=== PATIENT | male | born 1955 | race Caucasian/White ===

== ENCOUNTER 2018-10-05 09:38 | Outpatient (REF) | payer OTHER, SELFPAY ==
[2018-10-05 22:27] LABS: Cholesterol 216 mg/dL (50-200); HDL Cholesterol 44 mg/dL (40-60); LDL CHOLESTEROL 154 mg/dL (<100); Triglyceride 89 mg/dL (30-150)
== END 2018-10-05 09:58 ==
LOC: NCHCN 09:38
PROVIDERS: PCP Internal Medicine; Visit Provider Internal Medicine
DX: I10 Essential (primary) hypertension (principal); Z00.00 Encounter for general adult medical examination without abnormal findings; Z13.220 Encounter for screening for lipoid disorders
CPT/HCPCS: 80061; 83721

== ENCOUNTER 2019-05-03 10:07 | Outpatient (REF) | payer OTHER, SELFPAY ==
[2019-05-03 21:06] LABS: Anion Gap 10.9 mmol/L (3-11); BUN 28 mg/dL (7-18); CO2 28.1 mmol/L (21.0-32.0); CREATININE 1.03 mg/dL (0.70-1.30); Calcium 8.7 mg/dL (8.5-10.1); Calculated LDL 151 mg/dL; Chloride 103 mmol/L (98-107); Cholesterol 201 mg/dL (50-200); Glucose 85 mg/dL (70-100); HDL Cholesterol 36 mg/dL (40-60); Potassium 3.6 mmol/L (3.5-5.1); Sodium 142 mmol/L (136-145); Triglyceride 72 mg/dL (30-150)
== END 2019-05-03 10:27 ==
LOC: NCHCN 10:07
PROVIDERS: PCP Internal Medicine; Visit Provider Internal Medicine
DX: E78.5 Hyperlipidemia, unspecified (principal); I10 Essential (primary) hypertension
CPT/HCPCS: 80048; 80061; 83721

== ENCOUNTER 2019-12-15 12:46 | Outpatient (REF) | payer OTHER, SELFPAY | END 2019-12-15 13:06 | LOC: NCHCN 12:46 | PROVIDERS: PCP Internal Medicine; Visit Provider Internal Medicine | DX: R69 Illness, unspecified (principal) | CPT/HCPCS: 87449 ==

== ENCOUNTER 2020-07-07 15:00 | Outpatient (REF) | payer OTHER, SELFPAY ==
[2020-07-07 21:31] LABS: Anion Gap 7.3 mmol/L (3-11); BUN 26 mg/dL (7-18); CO2 29.7 mmol/L (21.0-32.0); CREATININE 0.94 mg/dL (0.70-1.30); Calcium 8.9 mg/dL (8.5-10.1); Calculated LDL 83 mg/dL (<100); Chloride 103 mmol/L (98-107); Cholesterol 134 mg/dL (<200); Glucose 80 mg/dL (74-106); HDL Cholesterol 37 mg/dL (40-60); Potassium 3.4 mmol/L (3.5-5.1); Sodium 140 mmol/L (136-145); Triglyceride 74 mg/dL (<150)
== END 2020-07-07 15:20 ==
LOC: NCHCN 15:00
PROVIDERS: PCP Internal Medicine; Visit Provider Internal Medicine
DX: E78.5 Hyperlipidemia, unspecified (principal); I10 Essential (primary) hypertension
CPT/HCPCS: 80048; 80061

== ENCOUNTER 2021-07-05 12:12 | Outpatient (REF) | payer MEDICARE, SELFPAY ==
[2021-07-05 14:42] LABS: Anion Gap 8.2 mmol/L (3-11); BUN 32 mg/dL (7-18); CO2 30.8 mmol/L (21.0-32.0); CREATININE 1.2 mg/dL (0.70-1.30); Calcium 8.7 mg/dL (8.5-10.1); Calculated LDL 86 mg/dL (<100); Chloride 104 mmol/L (98-107); Cholesterol 139 mg/dL (<200); Glucose 98 mg/dL (74-106); HDL Cholesterol 38 mg/dL (40-60); Potassium 3.5 mmol/L (3.5-5.1); Sodium 143 mmol/L (136-145); Triglyceride 76 mg/dL (<150)
[2021-07-05 22:38] LABS: PSA, Screening 1.3 ng/mL (0.0-4.5)
== END 2021-07-05 12:13 | disposition home or self-care (01) ==
LOC: NCHCN 12:12
PROVIDERS: PCP Internal Medicine; Visit Provider Internal Medicine
DX: I10 Essential (primary) hypertension (principal); E78.5 Hyperlipidemia, unspecified; Z12.5 Encounter for screening for malignant neoplasm of prostate
CPT/HCPCS: 80048; 80061; 84153

== ENCOUNTER 2021-09-03 16:35 | Outpatient (REF) | payer MEDICARE, OTHER, SELFPAY ==
[2021-09-05 12:52] LABS: COVID-19 RT-PCR UVMMC Result Negative (Negative)
== END 2021-09-03 16:36 | disposition home or self-care (01) ==
LOC: NCHCN 16:35
PROVIDERS: PCP Internal Medicine; Visit Provider Nurse Practitioner Family
DX: Z20.822 Contact with and (suspected) exposure to COVID-19 (principal); J06.9 Acute upper respiratory infection, unspecified
CPT/HCPCS: U0003

== ENCOUNTER 2022-07-05 08:48 | Outpatient (REF) | payer MEDICARE, SELFPAY ==
[2022-07-05 16:19] LABS: ALT 45 U/L (16-63); AST 38 U/L (15-37); Albumin 3.7 g/dL (3.4-5.0); Alkaline Phosphatase 81 U/L (46-116); Anion Gap 6.3 mmol/L (3-11); BUN 22 mg/dL (7-18); Bilirubin, Total 0.6 mg/dL (0.2-1.0); CO2 32.7 mmol/L (21.0-32.0); CREATININE 1.1 mg/dL (0.70-1.30); Calcium 8.9 mg/dL (8.5-10.1); Calculated LDL 77 mg/dL (<100); Chloride 102 mmol/L (98-107); Cholesterol 132 mg/dL (<200); Estimated GFR 74.04 (mL/min/1.73m2); Glucose 94 mg/dL (74-106); HDL Cholesterol 42 mg/dL (40-60); Potassium 3.3 mmol/L (3.5-5.1); Sodium 141 mmol/L (136-145); Total Protein 7.6 g/dL (6.4-8.2); Triglyceride 67 mg/dL (<150)
== END 2022-07-05 08:49 | disposition home or self-care (01) ==
LOC: NCHCN 08:48
PROVIDERS: PCP Internal Medicine; Visit Provider Internal Medicine
DX: I10 Essential (primary) hypertension (principal)
CPT/HCPCS: 80053; 80061

== ENCOUNTER 2022-08-12 10:23 | Outpatient (REF) | payer MEDICARE, SELFPAY ==
[2022-08-12 14:18] LABS: HCT 46.7 % (40.0-50.0); HGB 15.5 g/dL (13.5-17.5); MCH 29.1 pg (27.0-33.0); MCHC 33.2 % (32.0-36.0); MCV 88 fL (80-95); MPV 11.1 fL (8.0-11.0); Platelet Count 241 10^3/uL (130-400); RBC 5.32 10^6/uL (4.36-5.78); RDW 12.9 % (11.8-14.1); RDW-SD 41.1 fL; WBC 8.14 10^3/uL (4.4-10.8)
[2022-08-12 14:52] LABS: ALT 50 U/L (16-63); AST 36 U/L (15-37); Albumin 3.7 g/dL (3.4-5.0); Alkaline Phosphatase 85 U/L (46-116); Anion Gap 6.8 mmol/L (3-11); BUN 29 mg/dL (7-18); Bilirubin, Total 0.9 mg/dL (0.2-1.0); CO2 29.2 mmol/L (21.0-32.0); CREATININE 1.1 mg/dL (0.70-1.30); Calcium 8.9 mg/dL (8.5-10.1); Calculated LDL 70 mg/dL (<100); Chloride 104 mmol/L (98-107); Cholesterol 125 mg/dL (<200); Estimated GFR 74.04 (mL/min/1.73m2); Glucose 102 mg/dL (74-106); HDL Cholesterol 41 mg/dL (40-60); Potassium 3.7 mmol/L (3.5-5.1); Sodium 140 mmol/L (136-145); Total Protein 7.6 g/dL (6.4-8.2); Triglyceride 71 mg/dL (<150)
[2022-08-14 10:39] LABS: Hepatitis C Ab w Rflx HCV PCR Negative (Negative)
== END 2022-08-12 10:24 | disposition home or self-care (01) ==
LOC: NCHCN 10:23
PROVIDERS: PCP Internal Medicine; Visit Provider Internal Medicine
DX: I10 Essential (primary) hypertension (principal); E78.5 Hyperlipidemia, unspecified; R79.89 Other specified abnormal findings of blood chemistry; E87.6 Hypokalemia; Z11.59 Encounter for screening for other viral diseases
CPT/HCPCS: 80053; 80061; 85027; 86803

== ENCOUNTER 2023-07-11 15:46 | Outpatient (REF) | payer MEDICARE, SELFPAY ==
--- OUTSIDE RECORDS SUMMARY | 2023-07-11 15:48 | XMS_ITS | CCD ---
Author Name Unknown Address [address] [place] [id number] Organization Unknown Address [address] [place] [id number] Care Team Providers Care Fiscal Manager Name Role Phone [email or web address] GALLO Attending Physician [phone] Vital Signs Unknown or Not Available. Allergies Allergy Code Allergy Type Reaction Status No Known Drug Allergies 0 No known drug allergies Active Procedures Unknown or Not Available. History of Immunizations Unknown or Not Available. Problems Unknown or Not Available. Results Unknown or Not Available. Active Medications Unknown or Not Available. Medications Administered During Visit Unknown or Not Available. Encounters Unknown or Not Available. Social History Smoking Status Code Start Date End Date Never smoker [id number] Patient Decision Aids Unknown or Not Available. Discharge Instructions You were admitted to [facility] on 07/03/2023 15:38 You were discharged from [facility] on 07/03/2023 15:38 Should you have any questions prior to discharge, please contact a member of your healthcare team. If you have left the hospital and have any questions, please contact your primary care physician. Chief Complaint and Reason For Visit Unknown or Not Available. Function Status Unknown or Not Available. Plan of Care Unknown or Not Available. Referral/Transition of Care Unknown or Not Available.
[2023-07-11 18:04] LABS: ALT 35 U/L (16-63); AST 22 U/L (15-37); Albumin 3.6 g/dL (3.4-5.0); Alkaline Phosphatase 86 U/L (46-116); Anion Gap 6.5 mmol/L (3-11); BUN 25 mg/dL (7-18); Bilirubin, Total 0.7 mg/dL (0.2-1.0); CO2 30.5 mmol/L (21.0-32.0); CREATININE 1.2 mg/dL (0.70-1.30); Calcium 9.7 mg/dL (8.5-10.1); Chloride 101 mmol/L (98-107); Estimated GFR 66.28 (mL/min/1.73m2); Glucose 106 mg/dL (74-106); Potassium 3.9 mmol/L (3.5-5.1); Sodium 138 mmol/L (136-145); Total Protein 7.8 g/dL (6.4-8.2)
[2023-07-11 18:23] LABS: Calculated LDL 71 mg/dL (<100); Cholesterol 123 mg/dL (<200); HDL Cholesterol 39 mg/dL (40-60); Triglyceride 68 mg/dL (<150)
== END 2023-07-11 15:47 | disposition home or self-care (01) ==
LOC: NCHCN 15:46
PROVIDERS: PCP Internal Medicine; Visit Provider Internal Medicine
DX: E78.5 Hyperlipidemia, unspecified (principal); I10 Essential (primary) hypertension
CPT/HCPCS: 80053; 80061

== ENCOUNTER 2024-07-21 17:53 | Outpatient (REF) | payer MEDICARE, SELFPAY ==
[2024-07-21 15:07] LABS: ALT 31 U/L (16-63); AST 29 U/L (15-37); Albumin 3.7 g/dL (3.4-5.0); Alkaline Phosphatase 93 U/L (46-116); Anion Gap 3.6 mmol/L (3-11); BUN 28 mg/dL (7-18); Bilirubin, Total 0.78 mg/dL (0.2-1.0); CO2 34.4 mmol/L (21.0-32.0); Calcium 9.4 mg/dL (8.5-10.1); Calculated LDL 86 mg/dL (<100); Chloride 103 mmol/L (98-107); Cholesterol 144 mg/dL (<200); Estimated GFR 81.98 (mL/min/1.73m2); Glucose 92 mg/dL (74-106); HDL Cholesterol 47 mg/dL (40-60); Potassium 3.5 mmol/L (3.5-5.1); Sodium 141 mmol/L (136-145); Total Protein 7.4 g/dL (6.4-8.2); Triglyceride 57 mg/dL (<150)
[2024-07-21 15:10] LABS: Hemoglobin A1C 5.6 % (<5.7)
== END 2024-07-21 17:54 | disposition home or self-care (01) ==
LOC: NCHCN 17:53
PROVIDERS: PCP Internal Medicine; Visit Provider Internal Medicine
DX: E78.5 Hyperlipidemia, unspecified (principal); R73.09 Other abnormal glucose
CPT/HCPCS: 80053; 80061; 83036

== ENCOUNTER 2025-10-03 13:07 | Outpatient (REF) | payer MEDICARE, SELFPAY ==
[2025-10-03 16:43] LABS: Anion Gap 7.9 mmol/L (3-11); BUN 27 mg/dL (9-23); CO2 32.1 mmol/L (20.0-31.0); Calcium 9.4 mg/dL (8.3-10.6); Chloride 102 mmol/L (98-107); Cholesterol 135 mg/dL (<200); Glucose 93 mg/dL (74-106); HDL Cholesterol 39 mg/dL (>40); Potassium 3.8 mmol/L (3.5-5.1); Sodium 142 mmol/L (136-145)
[2025-10-04 00:16] LABS: PSA, Screening 2.0 ng/mL (<=6.5)
== END 2025-10-03 13:08 | disposition home or self-care (01) ==
LOC: NCHCN 13:07
PROVIDERS: PCP Internal Medicine; Visit Provider Internal Medicine
DX: E78.5 Hyperlipidemia, unspecified (principal); Z12.5 Encounter for screening for malignant neoplasm of prostate
CPT/HCPCS: 80048; 80061; 84153